=== PATIENT | male | born 1975 | race Two or more races ===

== ENCOUNTER 2019-10-13 10:45 | Outpatient (CLI) | payer OTHER ==
[~2019-10-13] VITALS: Ht 167.6 cm; Wt 74.8 kg
[2019-10-13] MEDS ORDERED: FLONASE16 GM NASAL (13:05)
[2019-10-13] MEDS ORDERED: CEFUROXIME500 MG PO (13:05)
[2019-10-13] MEDS ORDERED: CLARITIN10 MG PO (13:05)
== END 2019-10-13 13:18 | disposition home or self-care (01) ==
LOC: OFIC 805 10:45
DX: J32.8 Other chronic sinusitis (principal); J34.2 Deviated nasal septum; R06.83 Snoring; Z77.22 Contact with and (suspected) exposure to environmental tobacco smoke (acute) (chronic)